=== PATIENT | female | born 1995 | race Caucasian/White ===

== ENCOUNTER 2016-12-12 00:49 | Emergency (ER) | payer SELFPAY ==
[~2016-12-12] VITALS: Ht 172.7 cm; Wt 59.0 kg
[2016-12-12 01:42] VITALS: BP_SYST 107
[2016-12-12 02:06] VITALS: BP_SYST 110
== END 2016-12-12 02:06 | disposition home or self-care (01) ==
LOC: SED 00:49
DX: T78.40XA Allergy, unspecified, initial encounter (principal); J45.909 Unspecified asthma, uncomplicated; K21.9 Gastro-esophageal reflux disease without esophagitis; X58.XXXA Exposure to other specified factors, initial encounter
CPT/HCPCS: 99283